=== PATIENT | male | born 1955 | race Caucasian/White ===

== ENCOUNTER 2024-07-08 06:26 | Observation (INO) ==
[~2024-07-08 06:26] MED LIST: Metoclopramide 5 MG/ML VIAL (10 mg) IV PRN; NS 0.45% 1000 ml BAG 1,000 ML IV SCH; Naloxone 0.4 mg VIAL 0.4 mg/ml 1 ml VIAL IV PRN; Ondansetron 4 mg VIAL 2 MG/ML 2 ml VIAL IV PRN; ROPIVACAINE 5 MG/ML 30 ML BTL (0.5%) ONE; fentaNYL 100 mcg/2 ml 50 MCG/ML VIAL IV PRN
[2024-07-08] MEDS ORDERED: Tranexamic Acid 1 GM/100ML BAG 2,000 MG/200 ML BAG IV ONE (06:53)
[2024-07-08] MEDS ORDERED: ceFAZolin 2 GM PREMIX 2 GM/50 ML BAG ONE (06:53)
[2024-07-08] MEDS ORDERED: Propofol 10 MG/ML 20 ML BTL ONE ×2 (07:09→10:24)
[2024-07-08] MEDS ORDERED: Lidocaine 2% PF 5 ML VIAL ONE (07:09)
[2024-07-08 07:12] LABS: Rapid COVID-19 Molecular Undetected (Undetected)
[2024-07-08] MEDS: Buffered Lidocaine 1% SYRIN 1 ml INTRADERM ONE (07:13)
[2024-07-08] MEDS: Lactated Ringers 1000 ml BAG 1,000 ML IV SCH ×2 (07:13→14:31)
[2024-07-08] MEDS ORDERED: Phenylephrine IV 10 MG/ML 1 ml VIAL ONE (07:16)
[2024-07-08] MEDS ORDERED: KETAMINE HCL 10 MG/ML 20 ml VIAL (200 MG) ONE (07:16)
[2024-07-08] MEDS ORDERED: fentaNYL 100 mcg/2 ml 50 MCG/ML VIAL ONE (08:01)
[2024-07-08] MEDS ORDERED: Midazolam 2 mg/2 ml VIAL 1 mg/ml 2 ml VIAL (2 mg) ONE ×2 (08:01→09:11)
[2024-07-08] MEDS ORDERED: ROPIVACAINE 5 MG/ML 30 ML BTL (0.5%) ONE (08:01)
[2024-07-08] MEDS ORDERED: Glycopyrrolate IV 0.2 MG/ML 1 ML VIAL ONE (09:12)
[2024-07-08] MEDS ORDERED: Ondansetron 4 mg VIAL 2 MG/ML 2 ml VIAL ONE (09:46)
[2024-07-08] MEDS ORDERED: Morphine 2 MG/ML SYRINGE IV PRN (10:36)
[2024-07-08] MEDS ORDERED: Calcium Carb (TUMS) 500 mg CHEW TAB PO PRN (10:36)
[2024-07-08] MEDS ORDERED: Lactulose 30 ml UDC PO PRN (10:36)
[2024-07-08] MEDS ORDERED: Ondansetron 4 mg VIAL 2 MG/ML 2 ml VIAL IV PRN (10:36)
[2024-07-08] MEDS ORDERED: Ondansetron ODT 4 mg TAB 4 MG TAB PO PRN (10:36)
[2024-07-08] MEDS ORDERED: Magnesium Hydroxide LIQ 30 ML UDC PO PRN (10:36)
[2024-07-08] MEDS: Acetaminophen IV 1 GM/100ML 1,000 MG/100 ML BAG IV ONE (14:02)
[2024-07-08] MEDS: Scopolamine 1 mg/72hr PATCH TRANSDERM ONE (14:03)
[2024-07-08] MEDS: ceFAZolin 2 GM PREMIX 2 GM/50 ML BAG IV SCH (17:35)
[2024-07-08] MEDS: Magnesium Hydroxide LIQ 30 ML UDC PO SCH (21:09)
[2024-07-09 06:07] LABS: Hematocrit 36.7 % (38-53); Hemoglobin 12.8 g/dL (13.2-16.3); Mean Platelet Volume 8.6 fL (7.5-11.2); Platelet Count 159 10^3/uL (150-450)
[2024-07-09 06:30] LABS: Calcium 8.4 mg/dL (8.6-10.3); Creatinine, Serum 0.82 mg/dL (0.67-1.17); Potassium 4.2 mmol/L (3.5-5.0); eGFR CKD-EPI 96.3 (>60)
[2024-07-09] MEDS: Vitamin THERAPEUTIC TAB PO SCH (08:02)
[2024-07-09 11:13] VITALS: BP 124/68
== END 2024-07-09 11:20 | disposition home or self-care (01) ==
LOC: OR 06:26 → SSU 06:26 → EDSTATUS 07:30
PROVIDERS: ADMIT Orthopaedic Surgery Adult Reconstructive Orthopaedic Surgery; ATTEND Orthopaedic Surgery Adult Reconstructive Orthopaedic Surgery